=== PATIENT | female | born 2005 | race Caucasian/White ===

== ENCOUNTER → 2024-06-04 | Emergency (ER) | payer OTHER ==
[~2024-06-04] VITALS: Ht 149.9 cm; Wt 52.0 kg
[~2024-06-04] MED LIST: ACETAMINOPHEN 500MG TABLET PO ONE
[2024-06-04 14:51] VITALS: O2SAT 98
[2024-06-04] MEDS: ACETAMINOPHEN 500MG TABLET PO NR (18:07)
[2024-06-04 18:10] VITALS: BP 119/74; PULSE 70; RESP 16; TEMP 36.78072; O2SAT 98
== END | disposition home or self-care (01) ==
LOC: ER 14:37
DX: M79.644 Pain in right finger(s) (principal)
CPT/HCPCS: 73140; 99283